=== PATIENT | male | born 1955 | race Caucasian/White ===

== ENCOUNTER → 2017-02-26 | Outpatient (CLI) | payer OTHER ==
[~2017-02-26] MED LIST: CARVEDILOL12.5 MG PO; CLARITIN10 MG PO; FISH OIL 1,0001 EAC2 PO; GLUCOPHAGE1000 MG PO; HUMALOG KW200 UNIT/1 SQ; JANUVIA100 MG PO; LOPID600 M1 PO; NASONEX0.05 MG/AC NAS; NEXIUM20 M1 PO; NEXIUM40 MG PO; OMEGA 31000 MG PO; PERCOCET 325 MG1 TA2 PO; PRINIVIL10 MG PO; SIMVASTATIN20 MG PO; SUPER EPA1 SGL PO; TOUJEO300 U/ML SC; TRULICITY1.5 MG/0.5 SC; VITAMIN D5000 I3 PO; ZOFRAN4 MG PO
== END | disposition home or self-care (01) ==
LOC: CARD 10:16
DX: I10 Essential (primary) hypertension (principal); I42.9 Cardiomyopathy, unspecified

== ENCOUNTER 2019-09-26 11:16 | Inpatient (IN) | payer OTHER ==
[~2019-09-26] VITALS: Ht 185.4 cm; Wt 124.7 kg
[2019-09-26 11:19] VITALS: BP 140/70
[2019-09-26 12:03] LABS: BASO % 0.2 % (0.0-1.0); EOS % 0.2 % (1.0-4.0); HEMATOCRIT 38.1 % (42.0-52.0); LYMPH # 1.1 10*3/uL (1.3-4.4); LYMPH % 21.9 % (27.0-41.0); MEAN CELL VOLUME 84.1 fl (80.0-94.0); MEAN CORPUSCULAR HGB CONC 33.3 g/dl (33.0-37.0); MEAN PLATELET VOLUME 9.2 fl (9.6-12.3); MONO # 0.4 10*3/uL (0.1-1.0); MONO % 7.8 % (3.0-9.0); NEUT # 3.4 10*3/uL (2.3-7.9); NEUT % 69.3 % (47.0-73.0); PLATELET COUNT AUTOMATED 150 10*3/uL (130-400); RED BLOOD COUNT 4.53 10*6/uL (4.50-5.90); RED CELL DISTRI WIDTH 13.2 % (0-14.5)
[2019-09-26 12:14] LABS: ACT PARTIAL THROMBO TIME 31.6 SECONDS (20.0-32.1)
[2019-09-26 12:18] LABS: ALBUMIN 3.4 gm/dl (3.1-4.5); ALKALINE PHOSPHATASE 71 U/L (45-117); BUN 17 mg/dl (7-24); CHLORIDE 107 mmol/L (98-107); CREATININE 1.34 mg/dL (0.70-1.30); LIPASE 208 U/L (73-393); SGOT/AST 14 IU/L (3-35); SGPT/ALT 24 U/L (12-78); SODIUM 132 mmol/L (136-145); TOTAL PROTEIN 7.5 gm/dL (6.4-8.2)
[2019-09-26 12:28] LABS: TROPONIN I < 0.015 ng/ml (<0.045)
--- NOTE | 2019-09-26 13:11 | NUR ---
RECEIVED REPORT FROM MARY GRACE
[2019-09-26 13:36] VITALS: BP 131/71
[2019-09-26 14:00] VITALS: BP 134/70
--- NOTE | 2019-09-26 14:00 | NUR ---
Time: 1399 A 64 year old MALE admitted to 4E under services of KATIE CABRERA DO. Pt. arrived via stretcher from ER. Chief complaint: COVID-19 INFECTION. NILAM CORBIN
[2019-09-26] MEDS ORDERED: LIPITOR10 MG PO (14:22)
[2019-09-26] MEDS ORDERED: ZYRTEC10 M2 PO (14:22)
[2019-09-26] MEDS ORDERED: TRAMADOL HCL50 MG PO (14:22)
[2019-09-26] MEDS ORDERED: NOVOLOG10 ML SC (14:23)
[2019-09-26] MEDS ORDERED: BASAG SOL SC (14:23)
--- NOTE | 2019-09-26 14:25 | NUR ---
NOTIFIED DR PRYOR OF COMPLETED MED REC. HE STATED TO PUT IN AN ADA 1800 MARQU[address] DIET.
--- NOTE | 2019-09-26 14:44 | NUR ---
NOTIFIED DR SILVA'S ANSWERING SERVICE OF CONSULT.
[2019-09-26 16:00] VITALS: BP 131/71
--- NOTE | 2019-09-26 16:36 | NUR ---
TYLENOL GIVEN FOR TEMPERATURE OF 102.8 F ORALLY. WILL ASSESS EFFECTIVENESS.
--- NOTE | 2019-09-26 17:17 | NUR ---
SPOKE WITH DR SIVLA REGARDING CONSULT FOR PATIENT. SHE STATED TO KEEP GIVING HIM TYLENOL PRN FOR FEVERS. NO FURTHER ORDERS.
--- NOTE | 2019-09-26 17:33 | NUR ---
TYLENOL BEGINNING TO BE EFFECTIVE. TEMP 100.6 F ORALLY. WILL CONTINUE TO MONITOR.
[2019-09-26 20:00] VITALS: BP 110/55
[2019-09-26] MEDS ORDERED: OZEMPIC1 MG/0.75 SQ (21:12)
[2019-09-26] MEDS ORDERED: VASCEPA1 G1 PO (21:16)
--- NOTE | 2019-09-26 21:17 | NUR ---
MED REC UPDATED PER PT RECALL. PT IS ALERT AND ORIENTED X3.
--- NOTE | 2019-09-26 21:21 | NUR ---
MADE AWARE OF PT'S REQUEST FOR BREATHING TX. AWARE PT MOVED FROM ROOM 408 TO 420, WHICH IS NEGATIVE AIRFLOW ROOM. INSTRUCTED TO VERIFY THAT AEROSOL TREATMENTS OKAY PER POLICY AND IF SO, ORDER DUONEBS Q4H PRN. ALSO DISCUSSED HOME CPAP SITUATION. OKAY TO PUT IN ORDER TO USE HOSPITAL MACHINE PER HOME CPAP SETTING.
--- NOTE | 2019-09-26 21:28 | NUR ---
SPOKE TO RESPIRATORY & PHARMACY. USUALLY INHALER HAS BEEN ORDERED ON COVID+ PATIENTS. INHALER ORDERED AT THIS TIME FOR THIS REASON.
--- NOTE | 2019-09-26 22:47 | NUR ---
CALLED IN, UPDATED ON PLAN OF CARE.
--- NOTE | 2019-09-26 22:50 | NUR ---
PT MEDICATED WITH PO TYLENOL FOR ORAL TEMP 102.5. RN EXPLAINED PLAN OF CARE TO PATIENT. RESPIRATORY NOTIFIED OF PT READY TO GO ON CPAP. STATES THEY WILL BE UP. WILL MONITOR. CALL LIGHT IN REACH.
[2019-09-26 23:45] VITALS: BP 100/40
--- NOTE | 2019-09-27 00:01 | NUR ---
ONE TIME DOSE OF TYLENOL ADMINISTERED PER ORDER. ICE BAGS PROVIDED. PT REFUSING COOLING BLANKET AT THIS TIME. STATES HE DOES NOT WANT RECTAL PROBE. OFFERED BLANKET WITHOUT PROBE, PT WANTS TO TRY ICE BAGS AND TYLENOL BEFORE COOLING BLANKET. WILL MONITOR. CALL LIGHT IN REACH.
--- NOTE | 2019-09-27 00:05 | NUR ---
Pt placed on a V30 CPAP of 19. Pts home settings. Pt was told he could not use his home unit. Pt tolerating our machine ok. Alarms on.
[2019-09-27 00:20] VITALS: BP 105/47
[2019-09-27 01:30] VITALS: BP 105/58
--- NOTE | 2019-09-27 01:30 | NUR ---
ORAL TEMP NOW 99.3. EARLIER TYLENOL EFFECTIVE. WILL MONITOR. CALL LIGHT IN REACH.
--- NOTE | 2019-09-27 05:45 | NUR ---
PO TYLENOL GIVEN FOR ORAL TEMP 100.2. WILL MONITOR. CALL LIGHT IN REACH.
[2019-09-27 06:23] LABS: BASO % 0.2 % (0.0-1.0); EOS % 0.2 % (1.0-4.0); HEMATOCRIT 38.6 % (42.0-52.0); LYMPH # 1.4 10*3/uL (1.3-4.4); LYMPH % 26.5 % (27.0-41.0); MEAN CELL VOLUME 84.3 fl (80.0-94.0); MEAN CORPUSCULAR HGB 27.7 pg (27.0-31.0); MEAN CORPUSCULAR HGB CONC 32.9 g/dl (33.0-37.0); MEAN PLATELET VOLUME 9.2 fl (9.6-12.3); MONO # 0.5 10*3/uL (0.1-1.0); MONO % 9.1 % (3.0-9.0); NEUT # 3.4 10*3/uL (2.3-7.9); NEUT % 63.6 % (47.0-73.0); PLATELET COUNT AUTOMATED 164 10*3/uL (130-400); RED BLOOD COUNT 4.58 10*6/uL (4.50-5.90); RED CELL DISTRI WIDTH 13.2 % (0-14.5); WHITE BLOOD COUNT 5.4 10*3/uL (4.8-10.8)
[2019-09-27 06:36] LABS: ACT PARTIAL THROMBO TIME 32.5 SECONDS (20.0-32.1)
[2019-09-27 06:58] LABS: ALBUMIN 3.5 gm/dl (3.1-4.5); POTASSIUM 3.8 mmol/L (3.5-5.1)
[2019-09-27 07:05] LABS: FERRITIN 425.1 ng/mL (22.0-322.0); VITAMIN D, 25-HYDROXY 35.5 ng/mL (30-100)
[2019-09-27 07:07] LABS: CREATININE 1.47 mg/dL (0.70-1.30); FREE T4 1.24 ng/dl (0.76-1.46); THYROID STIM HORMONE (HS) 0.705 uIU/ml (0.358-4.75); TOTAL PROTEIN 7.5 gm/dL (6.4-8.2)
[2019-09-27 08:00] VITALS: BP 116/56
--- NOTE | 2019-09-27 09:00 | NUR ---
Lubrication Worker in to talk to patient. Patient states lives at home with . There are 12 steps in the home. Physician: fantasma xiao [facility]acy: [facility] Home health services: none Patient's level of ADLs: INDEPENDENT Patient has working utilities: all working DME: none Follow-up physician's appointment after d/c: will be made by [facility] nurse director upon discharge Does patient want to access PORTAL?: no Discharge plan discussed with patient, he lives at home with , is independent in adls and ambulation, works, drives, he states he will return home when medically stable and denies any home needs, family will transport him home when discharged, case management will follow. MIHAELA LAURA
--- NOTE | 2019-09-27 11:45 | NUR ---
PT MEDICATED WITH TYLENOL FOR FEVER OF 101.4. WILL MONITOR FOR EFFECTIVENESS.
[2019-09-27 11:53] VITALS: BP 115/62
--- NOTE | 2019-09-27 12:45 | NUR ---
PATIENT'S TEMP DOWN TO 99.4 AT THIS TIME - TYLENOL HAS BEEN EFFECTIVE.
[2019-09-27 15:49] VITALS: BP 117/60
--- NOTE | 2019-09-27 16:40 | NUR ---
PT'S TEMP BACK DOWN TO 99.9. WILL CONTINUE TO MONITOR.
--- NOTE | 2019-09-27 16:40 | NUR ---
PATIENT'S TEMP BACK UP TO 100.4 - MEDICATED WITH TYLENOL PER ORDER. WILL MONITOR.
[2019-09-27 20:00] VITALS: BP 106/58
[2019-09-28] VITALS: BP 109/60
[2019-09-28 03:15] VITALS: BP 126/68
--- NOTE | 2019-09-28 03:15 | NUR ---
PT MEDICATED WITH PO TYLENOL FOR C/O GENERALIZED BODY ACHES. TEMP AT THIS TIME 99.8. ROBITUSSIN ALSO ADMINISTERED FOR C/O COUGH. PO RESTORIL ALSO ADMINISTERED FOR C/O INSOMNIA. WILL MONITOR EFFECTIVENESS. PT PLACED SELF BACK ON V30 CPAP WITH HOME SETTINGS. WILL MONITOR. CALL LIGHT IN REACH.
[2019-09-28 07:36] LABS: CREATININE 1.48 mg/dL (0.70-1.30); POTASSIUM 3.9 mmol/L (3.5-5.1)
[2019-09-28 08:00] VITALS: BP 109/92
--- NOTE | 2019-09-28 09:00 | NUR ---
patient will return home when discharged, denies any home needs, case management will follow
--- NOTE | 2019-09-28 09:00 | NUR ---
PATIENT ALERT ORIENTED. MEDICATED WITH PRN ROBITUSSIN PER ORDER AND REQUEST. PATIENT IS ON ROOM AIR POX 96-100%. ANGRY OVERY NOT BEING ABLE TO USE HIS OWN C-PAP HE IS USING OURS AND CANNOT SHUT IT OFF.
[2019-09-28 12:00] VITALS: BP 103/61
--- NOTE | 2019-09-28 14:51 | NUR ---
MEDICATED WITH PRN ROBITUSSIN PER ORDER AND REQUEST.
[2019-09-28 16:00] VITALS: BP 110/64
[2019-09-28 20:00] VITALS: BP 107/67
--- NOTE | 2019-09-28 20:26 | NUR ---
ROBITUSSIN GIVEN FOR C/O COUGH. WILL MONITOR.
--- NOTE | 2019-09-28 20:28 | NUR ---
NOTIFIED OF PATIENT'S REQUEST FOR SOMETHING FOR DIARRHEA. NEW ORDERS TO FOLLOW.
--- NOTE | 2019-09-28 21:00 | NUR ---
PO RESTORIL GIVEN PER REQUEST FOR C/O INSOMNIA. IV ZOFRAN ALSO ADMINISTERED FOR NAUSEA. WILL MONITOR.
--- NOTE | 2019-09-28 21:06 | NUR ---
PO IMODIUM ALSO GIVEN FOR C/O DIARRHEA. WILL MONITOR.
[2019-09-29] VITALS: BP 100/60
--- NOTE | 2019-09-29 00:56 | NUR ---
PT SLEEPING. HOME BIPAP IN USE.
--- NOTE | 2019-09-29 03:09 | NUR ---
PT REMAINS ASLEEP IN BED. HOME CPAP IN USE.
--- NOTE | 2019-09-29 04:01 | NUR ---
PT ASLEEP IN BED. NO S/S OF DISTRESS NOTED. HOME CPAP IN USE.
--- NOTE | 2019-09-29 05:30 | NUR ---
ROBITUSSIN GIVEN FOR COUGH. WILL MONITOR EFFECTIVENESS. CALL LIGHT IN REACH.
--- NOTE | 2019-09-29 05:57 | NUR ---
IMODIUM GIVEN PER ORDER FOR C/O DIARRHEA. PT EDUCATED ABOUT NEEDING STOOL SAMPLE.
--- NOTE | 2019-09-29 06:30 | NUR ---
ROBITUSSIN HELPED SOME PER PT, BUT STILL COUGHING. IMODIUM NOT YET EFFECTIVE.
[2019-09-29 08:00] VITALS: BP 106/54
--- NOTE | 2019-09-29 08:00 | NUR ---
IN TO ROOM, PATIENT AWAKE, ALERT AND ORIENTED. NO STATED COMPLAINTS AT THIS TIME. PLEASANT AND COOPERATIVE WITH ASSESSMENT. DENIES ANY PAIN. RESPIRATIONS ARE EASY AND REGULAR ON ROOM AIR. NO SOB NOTED AT REST. PT IS ABLE TO REPOSITION SELF AND IS ENCOURAGED TO DO SO. BED IN LOWEST LOCKED POSITION AND CALL LIGHT WITHIN REACH.
--- NOTE | 2019-09-29 09:00 | NUR ---
patient will be discharged home, denies any home needs
--- NOTE | 2019-09-29 10:30 | NUR ---
RECEIVED A CALL FROM [facility] REGARDING PATIENT. CALLER COULD NOT TELL NURSE THE PASSCODE THAT THE PT SET UP. CHAPINCITO CEE NOTIFIED AND GAVE THE OK FOR NURSE TO RELEASE INFORMATION REGARDING PATIENT.
--- NOTE | 2019-09-29 11:30 | NUR ---
PT REQUESTED AND RECEIVED PRN ROBITUSSIN. WILL MONITOR FOR EFFECTIVENESS.
--- NOTE | 2019-09-29 12:09 | NUR ---
Discharge instructions reviewed with patient/family. Patient receptive and verbalizes understanding. Follow-up care arranged. Written instructions given to patient/family. MARILYNN FROST
== END 2019-09-29 12:22 | disposition home or self-care (01) | DRG 177 ==
LOC: ED 11:16 → EDHOLD 13:29 → 4E 13:29
PROVIDERS: Emergency Medicine; Hospitalist; ADMIT Student in an Organized Health Care Education/Training Program
PROC: 5A09357 Assistance with Respiratory Ventilation, Less than 24 Consecutive Hours, Continuous Positive Airway Pressure (ICD-10-PCS; principal; 2019-09-27)
PROC: 5A09357 Assistance with Respiratory Ventilation, Less than 24 Consecutive Hours, Continuous Positive Airway Pressure (ICD-10-PCS; 2019-09-29)
DX: U07.1 COVID-19 (principal); J12.89 Other viral pneumonia; E87.1 Hypo-osmolality and hyponatremia; I42.9 Cardiomyopathy, unspecified; I50.22 Chronic systolic (congestive) heart failure; I13.0 Hypertensive heart and chronic kidney disease with heart failure and stage 1 through stage 4 chronic kidney disease, or unspecified chronic kidney disease; N18.3 Chronic kidney disease, stage 3 (moderate); D64.9 Anemia, unspecified; E66.01 Morbid (severe) obesity due to excess calories; K21.9 Gastro-esophageal reflux disease without esophagitis; E11.69 Type 2 diabetes mellitus with other specified complication; E11.22 Type 2 diabetes mellitus with diabetic chronic kidney disease; G47.33 Obstructive sleep apnea (adult) (pediatric); G47.30 Sleep apnea, unspecified; Z90.5 Acquired absence of kidney; Z90.49 Acquired absence of other specified parts of digestive tract; Z85.528 Personal history of other malignant neoplasm of kidney; Z87.891 Personal history of nicotine dependence; Z83.79 Family history of other diseases of the digestive system; Z82.61 Family history of arthritis; Z88.0 Allergy status to penicillin; Z88.6 Allergy status to analgesic agent; Z79.899 Other long term (current) drug therapy; Z79.4 Long term (current) use of insulin; Z68.38 Body mass index [BMI] 38.0-38.9, adult

== ENCOUNTER → 2020-01-23 | Outpatient (CLI) | payer OTHER ==
[~2020-01-23] MED LIST changes: +BASAG SOL SC; +LIPITOR10 MG PO; +NOVOLOG10 ML SC; +OZEMPIC1 MG/0.75 SQ; +TRAMADOL HCL50 MG PO; +VASCEPA1 G1 PO; +ZYRTEC10 M2 PO
== END | disposition home or self-care (01) ==
LOC: CARD 09:23
PROVIDERS: ATTEND Physician Assistant
DX: I51.7 Cardiomegaly (principal); I42.0 Dilated cardiomyopathy; E11.9 Type 2 diabetes mellitus without complications

== ENCOUNTER → 2023-07-01 | Outpatient (CLI) | payer MEDICARE, OTHER | END | disposition home or self-care (01) | LOC: RESCLI 13:25 | PROVIDERS: ATTEND Family Medicine | DX: E11.9 Type 2 diabetes mellitus without complications (principal); I42.9 Cardiomyopathy, unspecified; I11.0 Hypertensive heart disease with heart failure; I50.20 Unspecified systolic (congestive) heart failure; E78.5 Hyperlipidemia, unspecified; K21.9 Gastro-esophageal reflux disease without esophagitis; J30.9 Allergic rhinitis, unspecified; N40.0 Benign prostatic hyperplasia without lower urinary tract symptoms; M19.90 Unspecified osteoarthritis, unspecified site; Z79.899 Other long term (current) drug therapy; Z88.8 Allergy status to other drugs, medicaments and biological substances; Z98.890 Other specified postprocedural states ==